=== PATIENT | male | born 1975 | race Caucasian/White ===

== ENCOUNTER 2016-09-20 12:50 | Emergency (ER) | payer OTHER ==
[2016-09-20] MEDS ORDERED: NITROGLYCERIN 0.4 MG/TAB 25 TAB/BOTTLE SL ONE (13:56)
[2016-09-20] MEDS ORDERED: METOPROLOL TARTRATE PF/INJ 5 MG/5 ML SDV IV ONE (13:56)
--- NOTE | 2016-09-20 13:58 | ER Document Report ---
ED Respiratory Problem - General Chief Complaint: Shortness Of Breath Stated Complaint: SHORTNESS OF BREATH,COUGH Time Seen by Provider: 09/20/16 13:17 TRAVEL OUTSIDE OF THE [place] IN LAST 30 DAYS: No - Related Data Allergies/Adverse Reactions: No Known Allergies Allergy (Verified 09/20/16 12:52) Past Medical History - Social History Smoking Status: Current Every Day Smoker Chew tobacco use (# tins/day): No Frequency of alcohol use: Rare Drug Abuse: None Family History: Hypertension Patient has suicidal ideation: No Patient has homicidal ideation: No - Past Medical History Cardiac Medical History: Reports: Hx Hypertension - For the past 1-1/2-2 years, is not taking medications at this time. Renal/ Medical History: Reports: Hx Kidney Stones. Denies: Hx Peritoneal Dialysis Physical Exam - Vital signs Vitals: Temp Pulse Resp BP Pulse Ox 98.4 F 125 H 28 H 165/125 H 93 09/20/16 12:53 09/20/16 12:53 09/20/16 12:53 09/20/16 12:53 09/20/16 12:53 Course - Re-evaluation Re-evalutation: 09/20/16 13:57 pt continues and tachycardic. Consulted with Dr. Gallardo regarding patient presentation, advises giving patient Lopressor IV as well as sublingual nitro to help with his tachycardia and hypertension. Suspect that patient is in congestive heart failure due to hypertension. - Vital Signs Vital signs: Temp Pulse Resp BP Pulse Ox 98.4 F 125 H 28 H 165/125 H 93 09/20/16 12:53 09/20/16 12:53 09/20/16 12:53 09/20/16 12:53 09/20/16 12:53
[2016-09-20] MEDS ORDERED: NITROGLYCERIN/D5W 250 ML IV PRN (14:06)
--- NOTE | 2016-09-20 14:07 | ER Document Report ---
ED Respiratory Problem - General Chief Complaint: Shortness Of Breath Stated Complaint: SHORTNESS OF BREATH,COUGH Time Seen by Provider: 09/20/16 13:17 Mode of Arrival: Ambulatory Information source: Patient TRAVEL OUTSIDE OF THE [place] IN LAST 30 DAYS: No - HPI Patient complains to provider of: CHF, Cough, Short of breath Onset: Last week Duration: Worse/persistent Context: Hx CHF, Smoker Short of Breath: Severe Chest pain/discomfort: Tightness Cough: Nonproductive Associated symptoms: Cough, Extertional dyspnea, Short of breath Similar symptoms previously: Yes Recently seen / treated by doctor: No Notes: Patient is a 40-year-old male with a history of hypertension and congestive heart failure, who presents to the emergency room with worsening shortness of breath, dyspnea on exertion and difficulty breathing that been going on over the past few weeks but worsening over the past few days, patient does report that he is supposed to be on carvedilol and pain daily, however he was getting close to running out so he is been spacing them out and taking them every other day or every third day, patient denies any fevers, no nausea or vomiting, no abdominal pain, he does report mild edema to bilateral lower extremities patient was admitted to this hospital in 2013 for similar symptoms and was transferred to [facility] if his condition worsened at the time - Related Data Allergies/Adverse Reactions: No Known Allergies Allergy (Verified 09/20/16 12:52) Past Medical History - General Information source: Patient - Social History Smoking Status: Current Every Day Smoker Chew tobacco use (# tins/day): No Frequency of alcohol use: Rare Drug Abuse: None Family History: Hypertension Patient has suicidal ideation: No Patient has homicidal ideation: No - Past Medical History Cardiac Medical History: Reports: Hx Hypertension - For the past 1-1/2-2 years, is not taking medications at this time. Renal/ Medical History: Reports: Hx Kidney Stones. Denies: Hx Peritoneal Dialysis Review of Systems - Review of Systems Constitutional: No symptoms reported EENT: No symptoms reported Cardiovascular: See HPI, Dyspnea, Edema Respiratory: Cough, Short of breath Gastrointestinal: No symptoms reported Genitourinary: No symptoms reported Male Genitourinary: No symptoms reported Musculoskeletal: No symptoms reported Skin: No symptoms reported Hematologic/Lymphatic: No symptoms reported Neurological/Psychological: No symptoms reported -: Yes All other systems reviewed and negative Physical Exam - Vital signs Vitals: Temp Pulse Resp BP Pulse Ox 98.4 F 125 H 28 H 165/125 H 93 09/20/16 12:53 09/20/16 12:53 09/20/16 12:53 09/20/16 12:53 09/20/16 12:53 Interpretation: Hypertensive, Tachycardic, Hypoxic, Tachypneic - General General appearance: Alert In distress: Severe - HEENT Head: Normocephalic, Atraumatic Eyes: Normal Conjunctiva: Normal Extraocular movements intact: Yes Eyelashes: Normal Pupils: PERRL Pharynx: Normal Neck: Normal - Respiratory Respiratory status: Respiratory distress, Labored, Retractions, Tachypnea Chest status: Nontender Breath sounds: Decreased air movement, Rales Chest palpation: Normal - Cardiovascular Rhythm: Regular, Tachycardia Heart sounds: Normal auscultation Murmur: No - Abdominal Inspection: Normal, Obese Distension: No distension Bowel sounds: Normal Tenderness: Nontender Organomegaly: No organomegaly - Back Back: Normal, Nontender - Extremities General upper extremity: Normal inspection, Nontender, Normal color, Normal ROM , Normal temperature General lower extremity: Nontender, Edema, Normal color, Normal ROM, Normal temperature. No: Nic's sign - Neurological Neuro grossly intact: Yes Cognition: Normal Orientation: AAOx4 [place] Coma Scale Eye Opening: Spontaneous [place] Coma Scale Verbal: Oriented [place] Coma Scale Motor: Obeys Commands [place] Coma Scale Total: 15 Speech: Normal Motor strength normal: LUE, RUE, LLE, RLE Sensory: Normal - Psychological Associated symptoms: Normal affect, Normal mood - Skin Skin Temperature: Warm Skin Moisture: Dry Skin Color: Normal Course - Re-evaluation Re-evalutation: 09/20/16 15:35 A call was placed to [facility] spoke with Bonita through [facility] connection, who will call back allergy 09/20/16 15:58 Patient was discussed with cardiology at [facility], Dr. Ashvin Sarah, who accepted patient for transfer but will speak with the hospitalist about getting him in the ICU or stepdown unit as opposed to a floor bed 09/20/16 16:[address] Burt, copra processor at [facility], who graciously accepted patient for transfer 09/20/16 17:52 Patient resting comfortably on BiPAP, continues to have tachycardia although improved, her pressure also remains high on nitroglycerin drip, slight Vince in the emergency room [facility], patient is stable for transport at this point in time - Vital Signs Vital signs: Temp Pulse Resp BP Pulse Ox 98.4 F 123 H 37 H 162/120 H 93 09/20/16 12:53 09/20/16 14:20 09/20/16 17:40 09/20/16 17:40 09/20/16 17:40 - Laboratory Result Diagrams: 09/20/16 13:58 09/20/16 13:58 Laboratory results interpreted by me: 09/20/16 09/20/16 09/20/16 13:58 13:58 13:58 WBC 13.1 H RBC 3.42 L Hgb 10.1 L Hct 30.2 L Absolute Neutrophils 9.8 H VBG pH VBG pCO2 Sodium 136.0 L Potassium 2.9 L* BUN 41 H Creatinine 4.80 H Est GFR ( Amer) 16 L Est GFR (Non-Af Amer) 14 L Calcium 8.2 L Direct Bilirubin 0.5 H Creatine Kinase 264 H NT-Pro-B Natriuret Pep 92499 H Albumin 3.3 L 09/20/16 14:50 WBC RBC Hgb Hct Absolute Neutrophils VBG pH 7.47 H VBG pCO2 34.0 L Sodium Potassium BUN Creatinine Est GFR ( Amer) Est GFR (Non-Af Amer) Calcium Direct Bilirubin Creatine Kinase NT-Pro-B Natriuret Pep Albumin - Diagnostic Test Radiology reviewed: Image reviewed, Reports reviewed - EKG Interpretation by Me EKG shows normal: Sinus rhythm Rate: Tachycardia Critical Care Note - Critical Care Note Total time excluding time spent on procedures (mins): 80 Comments: Arrived in respiratory distress with tachycardia, hypertension, and hypoxia, requiring BiPAP placement and nitroglycerin drip, eventual transfer to tertiary [facility] Discharge - Discharge Clinical Impression: CHF (congestive heart failure) Qualifiers: Congestive heart failure type: unspecified congestive heart failure type Congestive heart failure chronicity: acute on chronic Qualified Code(s): I50.9 - Heart failure, unspecified Acute renal failure Qualifiers: Acute renal failure type: unspecified Qualified Code(s): N17.9 - Acute kidney failure, unspecified Condition: Critical Disposition: [facility]
[2016-09-20] MEDS ORDERED: NITROGLYCERIN/D5W 50 MG/250 ML RTUINJ IV ONE (14:08)
[2016-09-20 14:18] LABS: ABSOLUTE BASOPHILS # (AUTO) 0.1 10^3/uL (0.0-0.2); ABSOLUTE EOSINOPHILS # (AUTO) 0.2 10^3/uL (0.0-0.6); ABSOLUTE LYMPHOCYTES (AUTO) 1.9 10^3/uL (0.5-4.7); ABSOLUTE NEUT (AUTO) 9.8 10^3/uL (1.7-8.2); EOSINOPHILS % (AUTO) 1.8 % (0-6); HEMATOCRIT 30.2 % (37.9-51.0); HEMOGLOBIN 10.1 g/dL (13.5-17.0); HGB HCT DIFFERENCE 0.1; LYMPHOCYTES % (AUTO) 14.7 % (13-45); MEAN CORPUSCULAR HEMOGLOBIN 29.4 pg (27.0-33.4); MEAN CORPUSCULAR HGB CONC 33.4 g/dL (32.0-36.0); MEAN CORPUSCULAR VOLUME 88 fl (80-97); MONOCYTES % (AUTO) 7.3 % (3-13); RED BLOOD COUNT 3.42 10^6/uL (4.35-5.55); RED CELL DISTRIBUTION WIDTH 13.7 % (11.5-14.0); SEGMENTED NEUTROPHILS % (AUTO) 75.2 % (42-78); WHITE BLOOD COUNT 13.1 10^3/uL (4.0-10.5)
--- NOTE | 2016-09-20 14:19 | RADIOLOGY REPORT (SQ) ---
EXAM DESCRIPTION: CHEST PA/LAT COMPLETED DATE/TIME: 09/20/2016 1:39 pm REASON FOR STUDY: cough, sob COMPARISON: 02/15/2014 EXAM PARAMETERS: NUMBER OF VIEWS: two views TECHNIQUE: Digital Frontal and Lateral radiographic views of the chest acquired. RADIATION DOSE: NA LIMITATIONS: none FINDINGS: LUNGS AND PLEURA: Diffuse interstitial pattern perihilar distribution. No Ashwin B-lines. No effusions. MEDIASTINUM AND HILAR STRUCTURES: No masses or contour abnormalities. HEART AND VASCULAR STRUCTURES: Stable cardiomegaly. BONES: No acute findings. HARDWARE: None in the chest. OTHER: No other significant finding. IMPRESSION: Perihilar airspace disease. This could be cardiogenic or noncardiogenic edema, atypical pneumonia, sarcoid. Clinical correlation is needed. TECHNICAL DOCUMENTATION: JOB ID: [id number] [employer]- All Rights Reserved
[2016-09-20 14:37] LABS: ALANINE AMINOTRANSFERASE 32 U/L (21-72); ALBUMIN 3.3 g/dL (3.5-5.0); ALKALINE PHOSPHATASE 58 U/L (38-126); ANION GAP 13 (5-19); ASPARTATE AMINO TRANSFERASE 31 U/L (17-59); BILIRUBIN,DIRECT 0.5 mg/dL (0.0-0.4); BILIRUBIN,TOTAL 0.5 mg/dL (0.2-1.3); BLOOD UREA NITROGEN 41 mg/dL (7-20); CALCIUM 8.2 mg/dL (8.4-10.2); CARBON DIOXIDE 24 mmol/L (22-30); CHLORIDE 99 mmol/L (98-107); CREATINE KINASE 264 U/L (55-170); GLUCOSE 100 mg/dL (75-110); MAGNESIUM 2.1 mg/dL (1.6-2.3); TOTAL PROTEIN 7.1 g/dL (6.3-8.2)
[2016-09-20 14:45] LABS: POTASSIUM 2.9 mmol/L (3.6-5.0)
[2016-09-20] MEDS ORDERED: POTASSI CL 20 MEQ/50 ML RIDER 50 ML IV SCH (15:00)
[2016-09-20 15:01] LABS: CREATINE KINASE MB 2.78 ng/mL (<4.55)
[2016-09-20 15:18] LABS: VENOUS BLOOD BASE EXCESS 0.8 mmol/L; VENOUS BLOOD HCO3 24.1 mmol/L (20-32); VENOUS BLOOD PH 7.47 (7.30-7.42)
[2016-09-20 15:22] LABS: TROPONIN I 0.298 ng/mL
--- NOTE | 2016-09-20 17:03 | EKG REPORT ---
SEVERITY:- ABNORMAL ECG - SINUS TACHYCARDIA PROBABLE LEFT ATRIAL ABNORMALITY LVH WITH SECONDARY REPOLARIZATION ABNORMALITY ANTERIOR ST ELEVATION, PROBABLY DUE TO LVH BORDERLINE PROLONGED QT INTERVAL : Confirmed by: Laureen Garcia 20-Sep-2016 17:03:31
[2016-09-20 18:01] VITALS: BP 179/131
== END 2016-09-20 18:21 | disposition short-term general hospital (02) ==
LOC: ER 12:50
DX: I50.9 Heart failure, unspecified (principal); N17.9 Acute kidney failure, unspecified; R06.02 Shortness of breath; R05 Cough; I10 Essential (primary) hypertension; F17.200 Nicotine dependence, unspecified, uncomplicated
CPT/HCPCS: 93005; 99291; 99292; 96365; 96366; 36415; 82553; 82550; 83735; 84443; 85025; 80053; 84484; 82803; 83880; 71020; 93010; 94660; J3480; J3490

== ENCOUNTER → 2017-01-02 | Outpatient (CLI) | payer OTHER ==
[2017-01-02 08:48] LABS: ALBUMIN 4.2 g/dL (3.5-5.0); ANION GAP 16 (5-19); BLOOD UREA NITROGEN 76 mg/dL (7-20); CALCIUM 8.8 mg/dL (8.4-10.2); CARBON DIOXIDE 28 mmol/L (22-30); CHLORIDE 94 mmol/L (98-107); CREATININE RESULT 4.85 mg/dL (0.52-1.25); GLUCOSE 138 mg/dL (75-110); PHOSPHORUS 5.3 mg/dL (2.5-4.5); POTASSIUM 3.4 mmol/L (3.6-5.0); SODIUM 137.8 mmol/L (137-145)
== END ==
LOC: LAB 08:06
PROVIDERS: ATTEND Internal Medicine Nephrology
DX: E87.6 Hypokalemia (principal)
CPT/HCPCS: 36415; 80069

== ENCOUNTER → 2017-01-13 | Outpatient (CLI) | payer OTHER ==
[2017-01-13 09:19] LABS: ABSOLUTE BASOPHILS # (AUTO) 0.1 10^3/uL (0.0-0.2); ABSOLUTE EOSINOPHILS # (AUTO) 0.4 10^3/uL (0.0-0.6); ABSOLUTE LYMPHOCYTES (AUTO) 1.8 10^3/uL (0.5-4.7); ABSOLUTE MONOCYTES (AUTO) 0.7 10^3/uL (0.1-1.4); ABSOLUTE NEUT (AUTO) 6.9 10^3/uL (1.7-8.2); BASOPHILS % (AUTO) 0.8 % (0-2); EOSINOPHILS % (AUTO) 4.2 % (0-6); HEMOGLOBIN 10.3 g/dL (13.5-17.0); HGB HCT DIFFERENCE 1.9; LYMPHOCYTES % (AUTO) 18.2 % (13-45); MEAN CORPUSCULAR HEMOGLOBIN 30.7 pg (27.0-33.4); MEAN CORPUSCULAR HGB CONC 35.5 g/dL (32.0-36.0); MEAN CORPUSCULAR VOLUME 86 fl (80-97); MONOCYTES % (AUTO) 6.6 % (3-13); RED BLOOD COUNT 3.36 10^6/uL (4.35-5.55); SEGMENTED NEUTROPHILS % (AUTO) 70.2 % (42-78); WHITE BLOOD COUNT 9.8 10^3/uL (4.0-10.5)
[2017-01-13 09:51] LABS: ALBUMIN 4.2 g/dL (3.5-5.0); ANION GAP 13 (5-19); BLOOD UREA NITROGEN 66 mg/dL (7-20); CALCIUM 9.2 mg/dL (8.4-10.2); CARBON DIOXIDE 31 mmol/L (22-30); CHLORIDE 96 mmol/L (98-107); CREATININE RESULT 4.82 mg/dL (0.52-1.25); GLUCOSE 121 mg/dL (75-110); MAGNESIUM 1.6 mg/dL (1.6-2.3); POTASSIUM 3.8 mmol/L (3.6-5.0); SODIUM 140.2 mmol/L (137-145)
== END ==
LOC: LAB 08:59
PROVIDERS: ATTEND Internal Medicine Nephrology
DX: N18.5 Chronic kidney disease, stage 5 (principal)
CPT/HCPCS: 36415; 80069; 83735; 85025

== ENCOUNTER 2017-05-11 14:04 | Inpatient (IN) | payer OTHER ==
--- NOTE | 2017-05-11 14:28 | ER Document Report ---
ED General - General Mode of Arrival: Medic Information source: Patient TRAVEL OUTSIDE OF THE [place] IN LAST 30 DAYS: No - HPI Onset: Just prior to arrival Onset/Duration: Sudden Pain Level: Denies <YAMILEX MASON - Last Filed: 05/11/17 23:54> <FLORENTIN GARNICA - Last Filed: 05/12/17 00:25> - General Chief Complaint: Near Syncope Stated Complaint: POSSIBLE SYNCOPE Time Seen by Provider: 05/11/17 14:09 Notes: Patient is a 41 year old male with a history of chronic kidney disease, CHF, and hypertension presents to the emergency department due to a syncopal episode prior to arrival. Patient states he was in [employer] when he had a syncopal episode while standing at the counter. EMS states the patient hit his head on the counter and had intermittent loss of consciousness during the episode that lasted a few minutes. Patient complains of cramping in hands, diaphoresis, urinary incontinence and grogginess . Patient denies any pain, dialysis, or cardiac stents. EMS states the patients vital signs were normal and denies any seizure activity. (YAMILEX MASON) - Related Data Allergies/Adverse Reactions: No Known Allergies Allergy (Verified 09/20/16 12:52) Past Medical History - General Information source: Patient, Emergency Med Personnel - Social History Smoking Status: Unknown if Ever Smoked Family History: Hypertension - Past Medical History Cardiac Medical History: Reports: Hx Congestive Heart Failure, Hx Hypertension - For the past 1-1/2-2 years, is not taking medications at this time. Renal/ Medical History: Reports: Hx Kidney Stones, Other - Chronic Kidney Disease - Immunizations Hx Diphtheria, Pertussis, Tetanus Vaccination: Yes <YAMILEX MASON - Last Filed: 05/11/17 23:54> Review of Systems - Review of Systems Constitutional: See HPI, Diaphoresis EENT: No symptoms reported Cardiovascular: No symptoms reported Respiratory: No symptoms reported Gastrointestinal: No symptoms reported Genitourinary: See HPI Male Genitourinary: No symptoms reported Musculoskeletal: See HPI Skin: No symptoms reported Hematologic/Lymphatic: No symptoms reported Neurological/Psychological: See HPI, Lost consciousness -: Yes All other systems reviewed and negative <YAMILEX MASON - Last Filed: 05/11/17 23:54> Physical Exam <YAMILEX MASON - Last Filed: 05/11/17 23:54> <FLORENTIN GARNICA - Last Filed: 05/12/17 00:25> - Vital signs Vitals: Temp Pulse Resp BP Pulse Ox 99.2 F 89 16 138/81 H 95 05/11/17 14:31 05/11/17 14:31 05/11/17 14:31 05/11/17 14:31 05/11/17 14:31 - Notes Notes: GENERAL: Alert, interacts well. No acute distress. HEAD: Normocephalic, atraumatic. EYES: Pupils equal, round, and reactive to light. Extraocular movements intact. Slight misalignment in superior lateral gaze which is resolved in 1-2 seconds. ENT: Oral mucosa moist, tongue midline. Nasal congestion. NECK: Full range of motion. Supple. Trachea midline. LUNGS: Trace expiratory wheezes. No rales or rhonchi. No respiratory distress. HEART: Regular rate and rhythm. No murmurs, gallops, or rubs. ABDOMEN: Soft, non-tender. Non-distended. Bowel sounds present in all 4 quadrants. EXTREMITIES: Fistula on the left forearm, distal aspect, palpable thrill. Moves all 4 extremities spontaneously. No edema, radial and dorsalis pedis pulses 2/4 bilaterally. No cyanosis. NEUROLOGICAL: Alert and oriented x3. Normal speech. cranial nerves II through XII grossly intact. Biceps and patellar DTRs 2+ bilaterally. PSYCH: Normal affect, normal mood. SKIN: Warm, dry, normal turgor. No rashes or lesions noted. (YAMILEX MASON) Course - Laboratory Result Diagrams: 05/11/17 14:20 05/11/17 14:20 - Consults Dr. Nevarez Time consulted: 15:51 - paged. Returned page at 16:29 <YAMILEX MASON - Last Filed: 05/11/17 23:54> - Laboratory Result Diagrams: 05/11/17 14:20 05/11/17 14:20 <FLORENTIN GARNICA - Last Filed: 05/12/17 00:25> - Re-evaluation Re-evalutation: 05/12/17 00:08 CBC shows anemia with hemoglobin 10.8, no leukocytosis, normal platelets, coags unremarkable, sodium slightly low at 133.5, potassium low at 3.1 replaced by mouth, there is acute on chronic renal failure with a BUN of 58 and creatinine is 7.64, no decrease in urination, no urinary retention, cardiac enzymes indeterminate 0.094, proBNP elevated at 5240, small blood in the urine but no signs of infection. Urine drug screen unremarkable, alcohol level less than 10 , CT scan of the head was undertaken given the loss of consciousness and head injury, this shows para nasal sinus disease but otherwise no acute process. Chest x-ray shows no acute process. 05/12/17 00:[address] Nevarez who agreed to admit the patient to her service for syncope, acute on chronic renal failure and hypokalemia. (FLORENTIN GARNICA) - Vital Signs Vital signs: Temp Pulse Resp BP Pulse Ox 98.6 F 81 15 144/71 H 95 05/11/17 17:24 05/11/17 17:23 05/11/17 19:01 05/11/17 19:01 05/11/17 19:01 - Laboratory Laboratory results interpreted by me: 05/11/17 05/11/17 05/11/17 14:20 14:20 14:20 RBC 3.63 L Hgb 10.8 L Hct 31.5 L RDW 14.3 H Lymphocytes % 11.0 L Monocytes % 16.6 H Sodium 133.5 L Potassium 3.1 L Chloride 94 L BUN 58 H Creatinine 7.64 H Est GFR ( Amer) 10 L Est GFR (Non-Af Amer) 8 L Direct Bilirubin 0.5 H Creatine Kinase 194 H NT-Pro-B Natriuret Pep Urine Protein 100 H Urine Blood SMALL H Urine Ascorbic Acid 20 H 05/11/17 14:20 RBC Hgb Hct RDW Lymphocytes % Monocytes % Sodium Potassium Chloride BUN Creatinine Est GFR ( Amer) Est GFR (Non-Af Amer) Direct Bilirubin Creatine Kinase NT-Pro-B Natriuret Pep 5240 H Urine Protein Urine Blood Urine Ascorbic Acid - EKG Interpretation by Me Additional EKG results interpreted by me: 05/12/17 00:25 EKG shows sinus rhythm at a rate of 84, normal axis, ventricular conduction delay, ST segment elevation in V2 and V3 related to LVH with secondary repolarization abnormality, unchanged from prior EKG, ST segment depressions in V6, T-wave inversions in lead II, III, aVF, V5 and V6 per my interpretation. Repeat EKG shows sinus rhythm at a rate of 83, LVH with ST segment elevation continues in V2, ST segment elevation resolved and V3, T-wave inversions persist in leads II, 3, aVF, new T-wave inversions in V4, unchanged in V5 and V6 , interventricular conduction delay unchanged per my interpretation. (FLORENTIN GARNICA) Discharge <YAMILEX MASON - Last Filed: 05/11/17 23:54> - Discharge Admitting Provider[facility] Telemetry <FLORENTIN GARNICA - Last Filed: 05/12/17 00:25> - Discharge Clinical Impression: Hypokalemia Syncope Qualifiers: Syncope type: unspecified Qualified Code(s): R55 - Syncope and collapse Acute on chronic renal failure Qualifiers: Acute renal failure type: unspecified Chronic kidney disease stage: stage 5, not on chronic dialysis Qualified Code(s): N17.9 - Acute kidney failure, unspecified Condition: Fair Disposition: ADMITTED INPATIENT Scribe Attestation: 05/12/17 00:25 I personally performed the services described in the documentation, reviewed and edited the documentation which was dictated to the scribe in my presence, and it accurately records my words and actions. (FLORENTIN GARNICA) Scribe Documentation - Scribe Written by Toy:: Toy Huggins, 05/11/2017 14:35 acting as scribe for :: Rinku <YAMILEX MASON - Last Filed: 05/11/17 23:54>
[2017-05-11] MEDS ORDERED: ASPIRIN 81 MG TABLET, CHEWABLE PO ONE (14:33)
[2017-05-11 14:54] LABS: ABSOLUTE BASOPHILS # (AUTO) 0.1 10^3/uL (0.0-0.2); ABSOLUTE EOSINOPHILS # (AUTO) 0.2 10^3/uL (0.0-0.6); ABSOLUTE LYMPHOCYTES (AUTO) 0.8 10^3/uL (0.5-4.7); ABSOLUTE MONOCYTES (AUTO) 1.2 10^3/uL (0.1-1.4); ABSOLUTE NEUT (AUTO) 5.2 10^3/uL (1.7-8.2); BASOPHILS % (AUTO) 0.7 % (0-2); EOSINOPHILS % (AUTO) 2.3 % (0-6); HEMATOCRIT 31.5 % (37.9-51.0); HEMOGLOBIN 10.8 g/dL (13.5-17.0); MEAN CORPUSCULAR HEMOGLOBIN 29.7 pg (27.0-33.4); MEAN CORPUSCULAR HGB CONC 34.1 g/dL (32.0-36.0); MEAN CORPUSCULAR VOLUME 87 fl (80-97); MONOCYTES % (AUTO) 16.6 % (3-13); PLATELET COUNT 243 10^3/uL (150-450); RED BLOOD COUNT 3.63 10^6/uL (4.35-5.55); RED CELL DISTRIBUTION WIDTH 14.3 % (11.5-14.0); SEGMENTED NEUTROPHILS % (AUTO) 69.4 % (42-78); TOTAL CELLS COUNTED % (AUTO) 100 %; WHITE BLOOD COUNT 7.4 10^3/uL (4.0-10.5)
[2017-05-11 14:59] LABS: APPEARANCE,URINE CLEAR; BILIRUBIN,URINE NEGATIVE (NEGATIVE); COLOR,URINE STRAW; GLUCOSE, URINE NEGATIVE (NEGATIVE); KETONES,URINE NEGATIVE (NEGATIVE); LEUKOCYTE ESTERASE,URINE NEGATIVE (NEGATIVE); NITRITE,URINE NEGATIVE (NEGATIVE); PROTEIN,URINE 100 mg/dL (NEGATIVE); UROBILINOGEN,URINE NEGATIVE mg/dL (<2.0)
[2017-05-11 15:00] LABS: INTERNATIONAL RATION (INR) 0.95; PROTHROMBIN TIME 13.4 SEC (11.4-15.4)
--- NOTE | 2017-05-11 15:05 | RADIOLOGY REPORT (SQ) ---
EXAM DESCRIPTION: CT HEAD WITHOUT COMPLETED DATE/TIME: 05/11/2017 2:56 pm REASON FOR STUDY: LOC, syncope COMPARISON: None. TECHNIQUE: Axial images acquired through the brain without intravenous contrast. Images reviewed wi th bone, brain and subdural windows. Images stored on PACS. All CT scanners at this facility use dose modulation, iterative reconstruction, and/or weight based d osing when appropriate to reduce radiation dose to as low as reasonably achievable (ALARA). [facility]: Dose Right [facility]: CareDose [facility]: Dose Right [facility]: Teradose 4D [facility]: [employer] RADIATION DOSE: CT Rad equipment meets quality standard of care and radiation dose reduction techniq ues were employed. CTDIvol: 64.6 mGy. DLP: 1163 mGy-cm. mGy. LIMITATIONS: None. FINDINGS: VENTRICLES: Normal size and contour. CEREBRUM: No masses. No hemorrhage. No midline shift. No evidence for acute infarction. Normal gra y/white matter differentiation. No areas of low density in the white matter. CEREBELLUM: No masses. No hemorrhage. No alteration of density. No evidence for acute infarction. EXTRAAXIAL SPACES: No fluid collections. No masses. ORBITS AND GLOBE: No intra- or extraconal masses. Normal contour of globe without masses. CALVARIUM: No fracture. PARANASAL SINUSES: Mild generalized chronic sinus disease. SOFT TISSUES: No mass or hematoma. OTHER: No other significant finding. IMPRESSION: PARANASAL SINUS DISEASE. NO ACUTE INTRACRANIAL PROCESS. EVIDENCE OF ACUTE STROKE: NO. COMMENT: Quality ID # [id number]: Final reports with documentation of one or more dose reduction techniques (e.g., Automated exposure control, adjustment of the mA and/or kV according to patient size, use of iterative reconstruction technique) TECHNICAL DOCUMENTATION: JOB ID: [id number] [employer]- All Rights Reserved
[2017-05-11 15:14] LABS: ALANINE AMINOTRANSFERASE 24 U/L (21-72); ALBUMIN 4.1 g/dL (3.5-5.0); ALKALINE PHOSPHATASE 72 U/L (38-126); ANION GAP 16 (5-19); ASPARTATE AMINO TRANSFERASE 26 U/L (17-59); BILIRUBIN,DIRECT 0.5 mg/dL (0.0-0.4); BILIRUBIN,TOTAL 0.5 mg/dL (0.2-1.3); BLOOD UREA NITROGEN 58 mg/dL (7-20); CALCIUM 8.9 mg/dL (8.4-10.2); CARBON DIOXIDE 24 mmol/L (22-30); CHLORIDE 94 mmol/L (98-107); CREATINE KINASE 194 U/L (55-170); GLUCOSE 107 mg/dL (75-110); MAGNESIUM 2.3 mg/dL (1.6-2.3); POTASSIUM 3.1 mmol/L (3.6-5.0); SODIUM 133.5 mmol/L (137-145); TOTAL PROTEIN 6.9 g/dL (6.3-8.2)
[2017-05-11 15:15] LABS: ALCOHOL < 10 mg/dL (NONE DETECTED)
[2017-05-11 15:22] LABS: URINE AMPHETAMINES SCREEN NEGATIVE; URINE BARBITURATES SCREEN NEGATIVE; URINE BENZODIAZEPINES SCREEN NEGATIVE; URINE COCAINE SCREEN NEGATIVE; URINE MARIJUANA (THC) SCREEN NEGATIVE; URINE METHADONE SCREEN NEGATIVE; URINE PHENCYCLIDINE SCREEN NEGATIVE
--- NOTE | 2017-05-11 15:30 | RADIOLOGY REPORT (SQ) ---
EXAM DESCRIPTION: CHEST SINGLE VIEW COMPLETED DATE/TIME: 05/11/2017 3:23 pm REASON FOR STUDY: LOC, syncope COMPARISON: 09/20/2016 EXAM PARAMETERS: NUMBER OF VIEWS: One view. TECHNIQUE: Single frontal radiographic view of the chest acquired. RADIATION DOSE: NA LIMITATIONS: None. FINDINGS: LUNGS AND PLEURA: No opacities, masses or pneumothorax. No pleural effusion. MEDIASTINUM AND HILAR STRUCTURES: No masses. Contour normal. HEART AND VASCULAR STRUCTURES: Heart normal in size. Normal vasculature. BONES: No acute findings. HARDWARE: None in the chest. OTHER: No other significant finding. IMPRESSION: NO ACUTE RADIOGRAPHIC FINDING IN THE CHEST. TECHNICAL DOCUMENTATION: JOB ID: [id number] [employer]- All Rights Reserved
[2017-05-11 15:36] LABS: CREATINE KINASE MB 1.03 ng/mL (<4.55)
[2017-05-11 15:37] LABS: TROPONIN I 0.094 ng/mL
[2017-05-11] MEDS ORDERED: POTASSIUM CHLORIDE 10 MEQ TABLET.SA PO ONE (15:45)
[2017-05-11] MEDS ORDERED: ONDANSETRON HCL INJ/PF 4 MG/2 ML SDV IV PRN (16:53)
[2017-05-11] MEDS ORDERED: LEVALBUTEROL HCL NEB 1.25 MG/3 ML AMPUL NEB PRN (16:53)
[2017-05-11] MEDS ORDERED: ACETAMINOPHEN 325 MG TABLET PO PRN (16:53)
[2017-05-11] MEDS ORDERED: ONDANSETRON 4 MG TAB.RAPDIS PO PRN (16:53)
[2017-05-11] MEDS ORDERED: OSELTAMIVIR PHOSPHATE 75 MG CAPSULE PO SCH (17:45)
--- NOTE | 2017-05-11 17:47 | PDOC H&P ---
History of Present Illness Admission Date/PCP: PCP: Dr. Pavel Howard 05/11/17 History of Present Illness: KIM LAMBERT is a 41 year old male with past medical history of CKD IV Fistula placed in December 2016 Hypertension CHF He had been having rhinorrhea fevers chills cough decreased appetite and decreased p.o. intake for the past 3 days and had been taking all his medications as before. Today he was at the pharmacy and while he was at the [employer] counter he had a syncopal episode and found himself on the floor. He hit the back of his head. He was found to have orthostatic hypotension in the emergency room. Past Medical History Cardiac Medical History: Reports: Congestive Heart Failure, Hypertension - For the past 1-1/2-2 years, is not taking medications at this time. Renal/ Medical History: Reports: Other - Chronic Kidney Disease Social History Smoking Status: Current Every Day Smoker Frequency of Alcohol Use: Occasional Hx Recreational Drug Use: No Family History Family History: Hypertension Parental Family History Reviewed: Yes Children Family History Reviewed: Yes Sibling(s) Family History Reviewed.: Yes Medication/Allergy Home Medications: Amlodipine Besylate [Amlodipine Besylate] 10 mg PO DAILY 06/09/15 Carvedilol [Carvedilol] 6.25 mg PO DAILY 06/09/15 Lisinopril [Lisinopril] 20 mg PO DAILY 06/09/15 Ondansetron [Zofran Odt 4 mg Tablet] 4 mg PO Q4HP PRN #30 tab.rapdis 06/09/15 Oxycodone HCl 5 mg PO Q6 #30 tablet 06/09/15 Allergies/Adverse Reactions: No Known Allergies Allergy (Verified 09/20/16 12:52) Physical Exam Vital Signs: Temp Pulse Resp BP Pulse Ox 99.2 F 89 27 H 138/81 H 95 05/11/17 14:31 05/11/17 14:31 05/11/17 16:15 05/11/17 14:31 05/11/17 15:51 Intake & Output 05/10/17 05/11/17 05/12/17 06:59 06:59 06:59 Weight 83.915 kg Additional comments: Young male lying in bed not in acute distress Lungs: Clear to auscultation bilaterally Cardiac: S1-S2 regular no peripheral edema no cyanosis he has a left forearm AV fistula present with thrill palpable HEENT: Pupils reactive light moist pink oropharyngeal mucosa Abdomen: Soft, no focal tenderness normal bowel sounds Skin: Warm and dry Awake and alert oriented 3 speech is clear and fluent no facial droop Normal affect Results Laboratory Results: 05/11/17 14:20 05/11/17 14:20 05/11/17 05/11/17 05/11/17 14:20 14:20 14:20 WBC 7.4 RBC 3.63 L Hgb 10.8 L Hct 31.5 L MCV 87 MCH 29.7 MCHC 34.1 RDW 14.3 H Plt Count 243 Seg Neutrophils % 69.4 Lymphocytes % 11.0 L Monocytes % 16.6 H Eosinophils % 2.3 Basophils % 0.7 Absolute Neutrophils 5.2 Absolute Lymphocytes 0.8 Absolute Monocytes 1.2 Absolute Eosinophils 0.2 Absolute Basophils 0.1 Sodium 133.5 L Potassium 3.1 L Chloride 94 L Carbon Dioxide 24 Anion Gap 16 BUN 58 H Creatinine 7.64 H Est GFR ( Amer) 10 L Est GFR (Non-Af Amer) 8 L Glucose 107 Calcium 8.9 Magnesium 2.3 Total Bilirubin 0.5 AST 26 ALT 24 Alkaline Phosphatase 72 Total Protein 6.9 Albumin 4.1 Urine Color STRAW Urine Appearance CLEAR Urine pH 5.0 Ur Specific [place] 1.010 Urine Protein 100 H Urine Glucose (UA) NEGATIVE Urine Ketones NEGATIVE Urine Blood SMALL H Urine Nitrite NEGATIVE Ur Leukocyte Esterase NEGATIVE Urine WBC (Auto) 1 Urine RBC (Auto) 1 05/11/17 05/11/17 05/11/17 14:20 14:20 14:20 Creatine Kinase 194 H CK-MB (CK-2) 1.03 Troponin I 0.094 NT-Pro-B Natriuret Pep 5240 H Impressions: Head CT 05/11/17 14:27 IMPRESSION: PARANASAL SINUS DISEASE. NO ACUTE INTRACRANIAL PROCESS. EVIDENCE OF ACUTE STROKE: NO. Chest X-Ray 05/11/17 14:33 IMPRESSION: NO ACUTE RADIOGRAPHIC FINDING IN THE CHEST. Assessment & Plan - Diagnosis (2) Acute on chronic renal failure Qualifiers: Acute renal failure type: unspecified Chronic kidney disease stage: stage 5 , not on chronic dialysis Qualified Code(s): N17.9 - Acute kidney failure, unspecified; N18.5 - Chronic kidney disease, stage 5; N18.5 - Chronic kidney disease, stage 5; N18.5 - Chronic kidney disease, stage 5; N18.5 - Chronic kidney disease, stage 5 Is this a current diagnosis for this admission?: Yes Plan: Due to dehydration and continued use of laxatives and lisinopril. Avoid all nephrotoxic agents. IV fluids have been started. Monitor renal function. (3) Hypokalemia Is this a current diagnosis for this admission?: Yes Plan: Repleted. (4) Syncope Qualifiers: Syncope type: unspecified Qualified Code(s): R55 - Syncope and collapse Is this a current diagnosis for this admission?: Yes Plan: Is likely due to orthostatic hypotension. Continue to monitor on telemetry. Fall precautions. - Time Time Spent: 50 to 70 Minutes
[2017-05-11] MEDS ORDERED: OXYCODONE HCL IR 5 MG TABLET PO SCH (18:00)
[2017-05-11] MEDS: CARVEDILOL 6.25 MG TABLET PO SCH (18:54)
[2017-05-11] MEDS: NORMAL SALINE 1000 ML 1,000 ML IV PRN (18:55)
--- NOTE | 2017-05-11 19:49 | EKG REPORT ---
SEVERITY:- ABNORMAL ECG - SINUS RHYTHM MICHOACANO, CONSIDER BIATRIAL ABNORMALITIES LVH WITH IVCD AND SECONDARY REPOL ABNRM : Confirmed by: Laureen Garcia 11-May-2017 19:48:38
--- NOTE | 2017-05-11 19:50 | EKG REPORT ---
SEVERITY:- ABNORMAL ECG - SINUS RHYTHM LEFT ATRIAL ABNORMALITY LVH WITH SECONDARY REPOLARIZATION ABNORMALITY ST ELEVATION, PROBABLE ANTERIOR INJURY VS LVH RELATED BORDERLINE PROLONGED QT INTERVAL : Confirmed by: Laureen Garcia 11-May-2017 19:49:41
[2017-05-11 21:05] LABS: CREATINE KINASE MB 1.81 ng/mL (<4.55)
[2017-05-11 21:13] LABS: TROPONIN I 0.112 ng/mL
[2017-05-12] MEDS: GUAIFENESIN/D-METHORPHAN (200-20 MG) SYRUP 10 ML PO PRN ×2 (01:21→17:38)
[2017-05-12 02:39] LABS: CREATINE KINASE MB 1.66 ng/mL (<4.55)
[2017-05-12 02:54] LABS: TROPONIN I 0.119 ng/mL
[2017-05-12 05:53] LABS: HEMATOCRIT 31.7 % (37.9-51.0); HEMOGLOBIN 10.9 g/dL (13.5-17.0); MEAN CORPUSCULAR HEMOGLOBIN 30.2 pg (27.0-33.4); MEAN CORPUSCULAR HGB CONC 34.5 g/dL (32.0-36.0); MEAN CORPUSCULAR VOLUME 88 fl (80-97); PLATELET COUNT 234 10^3/uL (150-450); RED BLOOD COUNT 3.62 10^6/uL (4.35-5.55); RED CELL DISTRIBUTION WIDTH 14.2 % (11.5-14.0)
[2017-05-12 06:12] LABS: ALANINE AMINOTRANSFERASE 26 U/L (21-72); ALKALINE PHOSPHATASE 67 U/L (38-126); ANION GAP 14 (5-19); ASPARTATE AMINO TRANSFERASE 30 U/L (17-59); BILIRUBIN,DIRECT 0.3 mg/dL (0.0-0.4); BILIRUBIN,TOTAL 0.3 mg/dL (0.2-1.3); BLOOD UREA NITROGEN 61 mg/dL (7-20); CALCIUM 8.7 mg/dL (8.4-10.2); CARBON DIOXIDE 26 mmol/L (22-30); CHLORIDE 96 mmol/L (98-107); CHOLESTEROL 129.03 mg/dL (0-200); GLUCOSE 95 mg/dL (75-110); MAGNESIUM 2.2 mg/dL (1.6-2.3); PHOSPHORUS 6.3 mg/dL (2.5-4.5); SODIUM 136.1 mmol/L (137-145); TOTAL PROTEIN 6.7 g/dL (6.3-8.2); TRIGLYCERIDES 150 mg/dL (<150)
[2017-05-12 06:24] LABS: CREATINE KINASE MB 1.68 ng/mL (<4.55)
[2017-05-12 06:26] LABS: TROPONIN I 0.125 ng/mL
[2017-05-12 06:29] LABS: DIRECT LDL 46 mg/dL (<100)
[2017-05-12 06:51] LABS: POTASSIUM 2.9 mmol/L (3.6-5.0)
[2017-05-12] MEDS ORDERED: POTASSIUM CHLORIDE 10 MEQ TABLET.SA PO ONE (09:30)
[2017-05-12] MEDS ORDERED: CARVEDILOL 6.25 MG TABLET PO SCH (10:00)
[2017-05-12] MEDS: POTASSIUM CHLORIDE 20 MEQ/50 ML RTU IV SCH ×2 (10:02→14:10)
[2017-05-12] MEDS: CARVEDILOL 6.25 MG TABLET PO SCH ×2 (10:03→17:35)
[2017-05-12] MEDS: NORMAL SALINE 1000 ML 1,000 ML IV PRN (10:05)
--- NOTE | 2017-05-12 10:57 | PDOC PROGRESS REPORT ---
Subjective Progress Note for:: 05/12/17 Subjective:: Patient is seen on rounds. He is resting comfortably in bed. He denies any shortness of breath, chest pain or dyspnea at rest. He denies any nausea, vomiting or diarrhea at the present time. He is eating and drinking well. He denies any significant arthralgias or myalgias at the present time. Remaining review of systems are negative. Reason For Visit: SYNCOPE,ACUTE ON CHRONIC RENAL FAILURE Physical Exam Vital Signs: Temp Pulse Resp BP Pulse Ox 98.8 F 66 22 H 165/94 H 91 L 05/12/17 05:27 05/12/17 05:26 05/12/17 04:01 05/12/17 05:26 05/12/17 04:01 Intake & Output 05/11/17 05/12/17 05/13/17 06:59 06:59 06:59 Output Total 400 Balance -400 General appearance: PRESENT: no acute distress, well-developed, well-nourished Head exam: PRESENT: atraumatic, normocephalic Eye exam: PRESENT: conjunctiva pink, EOMI, PERRLA. ABSENT: scleral icterus Ear exam: PRESENT: normal external ear exam Mouth exam: PRESENT: moist, tongue midline Neck exam: ABSENT: carotid bruit, JVD, lymphadenopathy, thyromegaly Respiratory exam: PRESENT: clear to auscultation trung. ABSENT: rales, rhonchi, wheezes Cardiovascular exam: PRESENT: RRR. ABSENT: diastolic murmur, rubs, systolic murmur Vascular exam: PRESENT: normal capillary refill GI/Abdominal exam: PRESENT: normal bowel sounds, soft. ABSENT: distended, guarding, mass, organolmegaly, rebound, tenderness Rectal exam: PRESENT: deferred Extremities exam: PRESENT: full ROM. ABSENT: calf tenderness, clubbing, pedal edema Neurological exam: PRESENT: alert, awake, oriented to person, oriented to place , oriented to time, oriented to situation, CN II-XII grossly intact. ABSENT: motor sensory deficit Psychiatric exam: PRESENT: appropriate affect, normal mood. ABSENT: homicidal ideation, suicidal ideation Skin exam: PRESENT: dry, intact, warm. ABSENT: cyanosis, rash Results Laboratory Results: 05/12/17 05:40 05/12/17 05:40 05/12/17 05/12/1718 05:40 05:40 05:40 WBC 6.0 RBC 3.62 L Hgb 10.9 L Hct 31.7 L MCV 88 MCH 30.2 MCHC 34.5 RDW 14.2 H Plt Count 234 Sodium 136.1 L Potassium 2.9 L* Chloride 96 L Carbon Dioxide 26 Anion Gap 14 BUN 61 H Creatinine 7.92 H Est GFR ( Amer) 9 L Est GFR (Non-Af Amer) 8 L Glucose 95 Calcium 8.7 Phosphorus 6.3 H Magnesium 2.2 Total Bilirubin 0.3 AST 30 ALT 26 Alkaline Phosphatase 67 Total Protein 6.7 Albumin 4.0 Triglycerides 150 Cholesterol 129.03 LDL Cholesterol Direct 46 VLDL Cholesterol 30.0 HDL Cholesterol 33 L TSH 2.62 05/11/17 05/11/17 05/12/17 18:30 20:23 02:05 CK-MB (CK-2) 1.81 1.66 Troponin I 0.104 0.112 0.119 NT-Pro-B Natriuret Pep 05/12/17 05:40 CK-MB (CK-2) 1.68 Troponin I 0.125 NT-Pro-B Natriuret Pep 3460 H Impressions: Head CT 05/11/17 14:27 IMPRESSION: PARANASAL SINUS DISEASE. NO ACUTE INTRACRANIAL PROCESS. EVIDENCE OF ACUTE STROKE: NO. Chest X-Ray 05/11/17 14:33 IMPRESSION: NO ACUTE RADIOGRAPHIC FINDING IN THE CHEST. Assessment & Plan - Diagnosis (1) Syncope Qualifiers: Syncope type: unspecified Qualified Code(s): R55 - Syncope and collapse Is this a current diagnosis for this admission?: Yes Plan: Likely from dehydration from recent gastroenteritis and continuing to take daily diuretics. Will continue IV fluids until this afternoon's BMP results are back (2) Acute on chronic renal failure Qualifiers: Acute renal failure type: unspecified Chronic kidney disease stage: stage 5 , not on chronic dialysis Qualified Code(s): N17.9 - Acute kidney failure, unspecified; N18.5 - Chronic kidney disease, stage 5; N18.5 - Chronic kidney disease, stage 5; N18.5 - Chronic kidney disease, stage 5; N18.5 - Chronic kidney disease, stage 5 Is this a current diagnosis for this admission?: Yes Plan: Continue IV hydration (3) Essential hypertension Is this a current diagnosis for this admission?: Yes Plan: Will restart amlodipine as his BP is up this am. Hold lisinopril (4) Hypokalemia Is this a current diagnosis for this admission?: Yes Plan: Replete will recheck this afternoon (5) Orthostatic hypotension Is this a current diagnosis for this admission?: Yes Plan: He is now hypertensive. Will restart Amlodipine - Time Time Spent with patient: 25-34 minutes Total Critical Time (Minutes): 15 Medications reviewed and adjusted accordingly: Yes Anticipated discharge: Home Within: within 48 hours
[2017-05-12] MEDS ORDERED: ONDANSETRON 4 MG TAB.RAPDIS PO PRN (11:23)
[2017-05-12] MEDS ORDERED: ONDANSETRON HCL INJ/PF 4 MG/2 ML SDV IV PRN (11:30)
[2017-05-12 18:05] LABS: ANION GAP 15 (5-19); BLOOD UREA NITROGEN 59 mg/dL (7-20); CALCIUM 8.3 mg/dL (8.4-10.2); CARBON DIOXIDE 24 mmol/L (22-30); CHLORIDE 99 mmol/L (98-107); GLUCOSE 96 mg/dL (75-110); POTASSIUM 3.3 mmol/L (3.6-5.0); SODIUM 137.6 mmol/L (137-145)
[2017-05-13] MEDS: GUAIFENESIN/D-METHORPHAN (200-20 MG) SYRUP 10 ML PO PRN (02:38)
[2017-05-13 05:21] LABS: ANION GAP 17 (5-19); BLOOD UREA NITROGEN 61 mg/dL (7-20); CALCIUM 8.5 mg/dL (8.4-10.2); CARBON DIOXIDE 27 mmol/L (22-30); CHLORIDE 97 mmol/L (98-107); GLUCOSE 95 mg/dL (75-110); SODIUM 140.5 mmol/L (137-145)
[2017-05-13 05:31] LABS: POTASSIUM 2.8 mmol/L (3.6-5.0)
[2017-05-13] MEDS ORDERED: POTASSIUM CHLORIDE 10 MEQ TABLET.SA PO ONE (06:00)
[2017-05-13] MEDS: POTASSIUM CHLORIDE 20 MEQ/50 ML RTU IV SCH ×2 (06:07→09:33)
[2017-05-13] MEDS: CARVEDILOL 6.25 MG TABLET PO SCH ×2 (09:31→18:06)
[2017-05-13] MEDS ORDERED: AMLODIPINE BESYLATE 5 MG TABLET PO SCH ×2 (10:00→13:14)
[2017-05-13] MEDS ORDERED: HYDRALAZINE HCL 10 MG TABLET PO PRN ×2 (13:14→17:43)
[2017-05-13] MEDS ORDERED: AMLODIPINE BESYLATE 5 MG TABLET PO ONE (13:14)
[2017-05-13] MEDS ORDERED: HYDRALAZINE HCL INJ/PF 20 MG/1 ML SDV IV ONE (17:53)
[2017-05-13] MEDS ORDERED: LABETALOL HCL INJ 20 MG/4 ML DISP.SYRIN IV ONE (17:53)
[2017-05-13] MEDS ORDERED: CLONIDINE HCL 0.1 MG TABLET PO ONE (18:30)
[2017-05-13 20:15] VITALS: BP 176/93
[2017-05-13] MEDS ORDERED: ATORVASTATIN CALCIUM 80 MG TABLET PO SCH (22:00)
[2017-05-13] MEDS ORDERED: ISOSORB DINIT/HYDRALAZINE HCL 20-37.5 MG TABLET PO SCH (22:00)
[2017-05-13] MEDS ORDERED: CLONIDINE HCL 0.1 MG TABLET PO SCH (22:00)
[2017-05-14] MEDS ORDERED: POTASSIUM CHLORIDE 10 MEQ TABLET.SA PO SCH (10:00)
[2017-05-14] MEDS ORDERED: AMLODIPINE BESYLATE 5 MG TABLET PO SCH (10:00)
--- NOTE | 2017-05-14 11:15 | PDOC DISCHARGE SUMMARY ---
General - Admit/Disc Date/PCP Admission Date/Primary Care Provider: 05/11/17 17:14 Discharge Date: 05/13/17 - Discharge Diagnosis (1) Acute on chronic renal failure Is this a current diagnosis for this admission?: Yes (2) Essential hypertension Is this a current diagnosis for this admission?: Yes (3) Hypokalemia Is this a current diagnosis for this admission?: Yes (4) Syncope Is this a current diagnosis for this admission?: Yes - Additional Information Discharge Diet: As Tolerated, Regular Discharge Activity: Activity As Tolerated Home Medications: Amlodipine Besylate [Norvasc 5 mg Tablet] 5 mg PO DAILY 05/12/17 Atorvastatin Calcium [Lipitor 80 mg Tablet] 80 mg PO QHS 05/12/17 Bumetanide [Bumex 1 mg Tablet] 1 mg PO DAILY 05/12/17 Carvedilol [Coreg 25 mg Tablet] 25 mg PO Q12 05/12/17 Clonidine HCl [Catapres 0.1 mg Tablet] 0.1 mg PO Q12 05/12/17 Isosorb Dinit/Hydralazine HCl [Bidil 20-37.5 mg Tablet] 1 tab PO Q8 05/12/17 History of Present Illness History of Present Illness: KIM LAMBERT is a 41 year old male presented with complaint of viral syndrome resulting in decreased p.o. intake for the past 3 days. Patient continued to take all his medications. Patient had a syncopal episode while out at the pharmacy. Please refer to H&P dictated by Dr. Rowley for complete details. Hospital Course Hospital Course: Patient is a 41-year-old male who presented to the hospital after syncopal episode which most likely resulted from decreased p.o. intake or intravascular depletion. Patient was found to be orthostatic. Patient was given gentle hydration and his p.o. antihypertensives were held. Patient does have essential hypertension and CKD stage IV with difficult to control blood pressures requiring multiple medications. Patient was given gentle hydration and medications were held. Patient shortly became extremely hypertensive and all his medications had to be resumed. Patient also was hypokalemic as he is receiving Bumex. Patient despite having advanced renal disease still make some urine but does have fistula in place that is maturing in preparation for dialysis. Patient was given potassium supplementation and potassium was normal prior to discharge home. Patient did not have any further syncopal episodes and was discharged home. Physical Exam Vital Signs: Temp Pulse Resp BP Pulse Ox 98.2 F 86 18 176/93 H 97 05/13/17 20:08 05/13/17 20:08 05/13/17 20:08 05/13/17 20:08 05/13/17 20:08 Intake & Output 05/12/17 05/13/17 05/14/17 06:59 06:59 06:59 Intake Total 1815 1041 Output Total 400 1050 1675 Balance -400 765 -634 Weight 81 kg General appearance: PRESENT: no acute distress, well-developed, well-nourished Head exam: PRESENT: normocephalic Eye exam: PRESENT: EOMI. ABSENT: scleral icterus Ear exam: PRESENT: normal external ear exam Mouth exam: PRESENT: moist Neck exam: ABSENT: carotid bruit, JVD, lymphadenopathy, thyromegaly Respiratory exam: PRESENT: clear to auscultation trung. ABSENT: rales, rhonchi, wheezes Cardiovascular exam: PRESENT: RRR. ABSENT: diastolic murmur, rubs, systolic murmur GI/Abdominal exam: PRESENT: normal bowel sounds, soft. ABSENT: distended, guarding, mass, organolmegaly, rebound, tenderness Rectal exam: PRESENT: deferred Extremities exam: PRESENT: full ROM. ABSENT: calf tenderness, clubbing, pedal edema Neurological exam: PRESENT: alert, awake, oriented to person, oriented to place , oriented to time, oriented to situation, CN II-XII grossly intact. ABSENT: motor sensory deficit Psychiatric exam: PRESENT: appropriate affect, normal mood. ABSENT: homicidal ideation, suicidal ideation Skin exam: PRESENT: dry, intact, warm. ABSENT: cyanosis, rash Results Laboratory Results: 05/12/17 05:40 05/13/17 11:43 05/13/17 05/13/17 05/13/17 04:41 04:41 11:43 Sodium 140.5 Potassium 2.8 L* 3.6 Chloride 97 L Carbon Dioxide 27 Anion Gap 17 BUN 61 H Creatinine 7.37 H Est GFR ( Amer) 10 L Est GFR (Non-Af Amer) 8 L Glucose 95 Calcium 8.5 Magnesium 2.2 01/21/18 01/21/18 01/22/18 18:30 20:23 02:05 CK-MB (CK-2) 1.81 1.66 Troponin I 0.104 0.112 0.119 NT-Pro-B Natriuret Pep 05/12/17 05:40 CK-MB (CK-2) 1.68 Troponin I 0.125 NT-Pro-B Natriuret Pep 3460 H Impressions: Head CT 05/11/17 14:27 IMPRESSION: PARANASAL SINUS DISEASE. NO ACUTE INTRACRANIAL PROCESS. EVIDENCE OF ACUTE STROKE: NO. Chest X-Ray 05/11/17 14:33 IMPRESSION: NO ACUTE RADIOGRAPHIC FINDING IN THE CHEST. Qualifiers PATEINT BEING DISCHARGED WITH ANY OF THE FOLLOWING DIAGNOSIS?: No Plan Time Spent: Greater than 30 Minutes
== END 2017-05-13 21:39 | disposition home or self-care (01) | DRG 683 ==
LOC: ER 14:04 → EH 17:14 → UNDOADMIN 17:14 → 4N 05-12 20:40
PROVIDERS: ADMIT Internal Medicine; ATTEND Internal Medicine
PROC: 3E0F73Z Introduction of Anti-inflammatory into Respiratory Tract, Via Natural or Artificial Opening (ICD-10-PCS; principal; 2017-05-12)
DX: N17.9 Acute kidney failure, unspecified (principal); I13.11 Hypertensive heart and chronic kidney disease without heart failure, with stage 5 chronic kidney disease, or end stage renal disease; I95.1 Orthostatic hypotension; N18.5 Chronic kidney disease, stage 5; E87.6 Hypokalemia; E86.0 Dehydration; J32.8 Other chronic sinusitis; F17.210 Nicotine dependence, cigarettes, uncomplicated; W18.39XA Other fall on same level, initial encounter; Y92.512 Supermarket, store or market as the place of occurrence of the external cause; D63.1 Anemia in chronic kidney disease; Z79.899 Other long term (current) drug therapy; Z82.49 Family history of ischemic heart disease and other diseases of the circulatory system
CPT/HCPCS: 36415; 70450; 71045; 80048; 80053; 80061; 80307; 81001; 82550; 82553; 83036; 83735; 83880; 84100; 84132; 84443; 84484; 85025; 85027; 85610; 93005; 93010; 99285; J0360; J3480; J3490; J7030

== ENCOUNTER 2019-03-05 04:52 | Emergency (ER) | payer OTHER ==
[2019-03-05] MEDS ORDERED: AMOXICILLIN TR/POT CLAVULANATE ES 600-42.9 MG/5 ML 75 ML PO ONE (08:54)
[2019-03-05] MEDS ORDERED: LIDOCAINE 1% INJ (10 MG/ML) 10 ML MDV ONE (09:34)
--- NOTE | 2019-03-05 10:03 | ER Document Report ---
Entered by MILTON SHARMA SCRIBE 03/05/19 0854 Acting as scribe for:MANE COREA IV, MD ED Animal Bite - General Chief Complaint: Dog Bite Stated Complaint: DOG BITE Time Seen by Provider: 03/05/19 08:45 Mode of Arrival: Ambulatory Information source: Patient Notes: 43-year-old male that presents to the emergency department today with complaints of a dog bite to his lower lip. Patient states at 3:45 AM this morning he reached down to pet his sister's dog and his sister's dog "snapped at him", he jumped back, and the dog lunged again striking him in the lower lip. Patient has 2 puncture wounds/lacerations to his lower lip. Patient states that the dog is up-to-date on vaccinations. Patient states he has had a tetanus shot within the last 5 years. Patient states the dog has been acting appropriately recently. TRAVEL OUTSIDE OF THE [place] IN LAST 30 DAYS: No - Related Data Allergies/Adverse Reactions: oyster extract Allergy (Verified 03/05/19 07:50) Home Medications: bidil, coreg, amilodipine,bumex Past Medical History - General Information source: Patient - Social History Smoking Status: Current Every Day Smoker Cigarette use (# per day): Yes Frequency of alcohol use: None Drug Abuse: None Lives with: Family Family History: Reviewed & Not Pertinent, Hypertension Patient has suicidal ideation: No Patient has homicidal ideation: No - Past Medical History Cardiac Medical History: Reports: Hx Congestive Heart Failure, Hx Hypertension - For the past 1-1/2-2 years, is not taking medications at this time. Renal/ Medical History: Reports: Hx Kidney Stones - Immunizations Hx Diphtheria, Pertussis, Tetanus Vaccination: Yes Review of Systems - Review of Systems Constitutional: No symptoms reported EENT: No symptoms reported Cardiovascular: No symptoms reported Respiratory: No symptoms reported Gastrointestinal: No symptoms reported Genitourinary: No symptoms reported Male Genitourinary: No symptoms reported Musculoskeletal: No symptoms reported Skin: See HPI, Other - dog bite to lower lip Hematologic/Lymphatic: No symptoms reported Neurological/Psychological: No symptoms reported -: Yes All other systems reviewed and negative Physical Exam - Vital signs Vitals: Temp Pulse Resp BP Pulse Ox 98.0 F 82 20 145/92 H 100 03/05/19 05:00 03/05/19 05:00 03/05/19 05:00 03/05/19 05:00 03/05/19 05:00 - Notes Notes: Physical Exam: General: Alert, appears well. HEENT: Normocephalic. Atraumatic. PERRLA. Extraocular movements intact. Oropharynx clear. Neck: Supple. Respiratory: No respiratory distress. Abdominal: Normal Inspection. No distension. Extremities: Moves all four extremities. Neurological: Normal cognition. AAOx4. Normal speech. Psychological: Normal affect. Normal Mood. Skin: See laceration repair note. Course - Re-evaluation Re-evalutation: 03/05/19 10:35 Wound repair inspected by this MD. Edges appear well reapproximated. - Vital Signs Vital signs: Temp Pulse Resp BP Pulse Ox 98.0 F 82 20 145/92 H 100 03/05/19 05:00 03/05/19 05:00 03/05/19 05:00 03/05/19 05:00 03/05/19 05:00 Discharge - Discharge Clinical Impression: Dog bite Condition: Good Disposition: HOME, SELF-CARE Instructions: Animal Bites (OM) Additional Instructions: HOME CARE INSTRUCTIONS & INFORMATION: Thank you for choosing us for your medical needs. We hope you're satisfied with the care you received. After you leave, you must properly care for your problem and, at the same time, observe its progress. Any condition can change. Some illnesses can change rapidly over hours or days. If your condition worsens, return to the Emergency Department or see your physician promptly. ABOUT YOUR X-RAYS AND EKG'S: If you had an EKG or X-rays taken, they have been read by the Emergency Physician. The X-rays and EKG's will also be read by a Radiologist or Engineering Group Manager within 24 hours. If discrepancies are noted, you will be notified by telephone. Please be certain the ED has a correct telephone number & address where you can be reached. Also, realize that some fractures or abnormalities do not show up on initial X-rays. If your symptoms continue, see your physician. ABOUT YOUR LABORATORY TEST: If you had laboratory tests, the results have been reviewed by the Emergency Physician. Some test results (for example cultures) may not be available for several days. You will be contacted if any test result shows you need additional treatment. Please be certain the ED has a correct telephone number and address where you can be reached. ABOUT YOUR MEDICATIONS: You will receive instructions on how to take your medicine on the prescription label you receive. Additional information may be provided by the Pharmacy. If you have questions afterwards, call the ED for clarification or further instructions. Some prescribed medications may cause drowsiness. Do not perform tasks such as driving a car or operating machinery without consulting your Pharmacist. If you feel you need a refill of pain medication, your condition will need re-evaluation. Please do not call for a refill of any medication. ABOUT YOUR SIGNATURE: Signature of this document acknowledges to followin. Understanding that you received emergency treatment and that you may be released before al medical problems are known or treated. Please be certain the ED has a correct phone number & address where you can be reached. 2. Acknowledgement that you will arrange for follow-up care as recommended. 3. Authorization for the Emergency Physician to provide information to your follow-up Physician in order to maximize your care. AT ANY TIME, IF YOUR SYMPTOMS CHANGE SIGNIFICANTLY OR WORSEN OR YOU DEVELOP NEW SYMPTOMS, RETURN TO THE EMERGENCY DEPARTMENT IMMEDIATELY FOR RE-EVALUATION. OUR GOAL IS TO PROVIDE EXCELLENT MEDICAL CARE! WE HOPE THAT WE HAVE MET YOUR EXPECTATIONS DURING YOUR EMERGENCY DEPARTMENT VISIT AND THAT YOU FEEL YOU HAVE RECEIVED EXCELLENT CARE! Animal Bites Animal bites are often heavily contaminated with bacteria. In spite of thorough cleansing and proper treatment, these wounds frequently become infected. Bite wounds of the hands are especially prone to complications. Bites are dressed, if possible. Large wounds may require suturing after internal cleansing. Because of infection risk, some large wounds must remain unstitched. Your doctor is trained to advise you on the best treatment for your bite. Call the doctor at once if the wound becomes red, swollen, warm, increasingly painful, or if it begins to drain. Danger signs also include red streaks up the involved extremity, swollen glands in the groin or under the arm, or fever and chills. The risk of rabies from domestic animals is very low. Bats, sick animals, and wild animals may expose you to rabies. The physician, or the health department, will inform you if you will need to receive the rabies vaccine. Prescriptions: Amox Tr/Potassium Clavulanate [Augmentin 875-125 Tablet] 1 tab PO BID 10 Days #20 tablet Referrals: ROJY,MARLON, MD [ACTIVE STAFF] - Follow up in 1 week I personally performed the services described in the documentation, reviewed and edited the documentation which was dictated to the scribe in my presence, and it accurately records my words and actions.
[2019-03-05 10:48] VITALS: BP 130/88
[2019-03-05] MEDS ORDERED: HYDROCODONE/ACETAMINOPHEN 5-325 MG (6 TAB/ER DISP) PO PRN (10:50)
== END 2019-03-05 11:00 | disposition home or self-care (01) ==
LOC: ER 04:52
DX: S01.551A Open bite of lip, initial encounter (principal); W54.0XXA Bitten by dog, initial encounter; Y93.89 Activity, other specified; I11.0 Hypertensive heart disease with heart failure; I50.9 Heart failure, unspecified; Z79.899 Other long term (current) drug therapy; F17.210 Nicotine dependence, cigarettes, uncomplicated; Z91.013 Allergy to seafood
CPT/HCPCS: 99283; J3490